=== PATIENT | male | born 1970 | race Caucasian/White ===

== ENCOUNTER 2017-01-12 00:09 | Emergency (ER) | payer OTHER ==
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
== END 2017-01-12 01:01 | disposition home or self-care (01) ==
LOC: ER 00:09
DX: Z04.1 Encounter for examination and observation following transport accident (principal)
CPT/HCPCS: 99281